=== PATIENT | female | born 1965 | race Caucasian/White ===

== ENCOUNTER 2018-10-31 12:15 | Outpatient (CLI) | END 2018-10-31 12:16 | disposition home or self-care (01) | LOC: RHC-LAB 12:15 → FCC-LAB 12:16 | PROVIDERS: ATTEND Family Medicine | DX: R07.81 Pleurodynia (principal); R03.0 Elevated blood-pressure reading, without diagnosis of hypertension | CPT/HCPCS: 80306 ==